=== PATIENT | male | born 1980 | race Hispanic/Latino ===

== ENCOUNTER 2018-02-09 11:30 | Emergency (ER) | payer SELFPAY ==
[2018-02-09 12:00] LABS: Basophils # (Auto) 0.1 K/mm3 (0.0-0.1); Basophils % (Auto) 1.4 % (0.0-1.8); Eosinophils # (Auto) 0.1 K/mm3 (0.0-0.4); Eosinophils % (Auto) 1.4 % (0.0-4.3); Hematocrit 39.3 % (35.5-45.6); Hemoglobin 12.9 gm/dl (11.8-15.2); Lymphocytes # (Auto) 2.1 K/mm3 (1.2-5.4); Lymphocytes % (Auto) 36.1 % (13.4-35.0); Mean Corpuscular HGB Conc 33 % (32-34); Mean Corpuscular Hemoglobin 30 pg (28-32); Mean Corpuscular Volume 91 fl (84-94); Monocytes # (Auto) 0.6 K/mm3 (0.0-0.8); Monocytes % (Auto) 11.2 % (0.0-7.3); Platelet Count 321 K/mm3 (140-440); Red Cell Distribution Width 14.6 % (13.2-15.2)
--- NOTE | 2018-02-09 12:04 | Cat Scan Report ---
CT HEAD WITHOUT CONTRAST: HISTORY: Neurologic deficit. TECHNIQUE: Sequential 2.5mm CT images. COMPARISON: none. FINDINGS: Cerebral Parenchyma: Within normal limits. Cerebellum: Within normal limits. Brainstem: Within normal limits. Ventricles: Normal. Sella: Normal. Extra-axial spaces: Normal. Basal Cisterns: Normal. Intracranial Hemorrhage: None. Midline Shift: None. Calvarium: Normal. Sinuses: Normal. Mastoid Air Cells: Normal. Visualized Orbits: Normal. IMPRESSION: Cranial CT scan within normal limits. These findings were discussed with Dr. Mcarthur in the emergency department at 1142 hours.
[2018-02-09 12:12] LABS: INR 0.96 (0.87-1.13)
[2018-02-09 12:13] LABS: Partial Thromboplastin Time 28.6 Sec. (24.2-36.6)
[2018-02-09 12:14] LABS: BUN/Creatinine Ratio 17; Blood Urea Nitrogen 12 mg/dL (9-20); Calcium 9.1 mg/dL (8.4-10.2); Hemolysis Index 0
[2018-02-09] MEDS ORDERED: VASELINE LIP THERAPY TP PRN (12:19)
[2018-02-09] MEDS ORDERED: ARTIFICIAL TEARS OPHTH OINT OU PRN (12:19)
[2018-02-09] MEDS ORDERED: fentaNYL DRIP Premix 2,000 MCG/100 ML BAG IV SCH (13:00)
[2018-02-09] MEDS ORDERED: ATIVAN 100 MG in NACL 0.9% 50 ML, VIAFLEX EMPTY CONTAINER 0 ML IV SCH (13:00)
[2018-02-09 13:05] LABS: Alanine Aminotransferase 19 units/L (7-56); Albumin 4.1 g/dL (3.9-5)
[2018-02-09 13:10] LABS: Bilirubin,Direct < 0.2 mg/dL (0-0.2)
[2018-02-09 13:20] LABS: Cocaine Screen,Urine PRESUMPTIVE NEGATIVE; Methadone Screen,Urine PRESUMPTIVE NEGATIVE; Opiate Screen,Urine PRESUMPTIVE NEGATIVE
[2018-02-09 13:22] LABS: Bilirubin,Urine NEG (Negative); Blood,Urine LG (Negative); Color,Urine Amber (Yellow); Mucus,Urine FEW /HPF
[2018-02-09 13:23] LABS: RBC,Urine > 182.0 /HPF (0.0-6.0)
[2018-02-09 13:40] LABS: Amphetamine Screen,Urine PRESUMPTIVE POSITIVE; Benzodiazepines Screen,Urine PRESUMPTIVE POSITIVE; Cannabinoid Screen,Urine PRESUMPTIVE POSITIVE
--- NOTE | 2018-02-09 14:43 | Cat Scan Report ---
FINAL REPORT EXAM: CT CERVICAL SPINE WO CON HISTORY: fall patient was found unconscious but woke up and fought intubation. Neck was bent at an odd angle while in C-spine protection. Concern for soft tissue damage. TECHNIQUE: CT of the cervical spine was performed without intravenous contrast. Reconstructions were included in the coronal and sagittal planes. PRIORS: None. FINDINGS: No cervical spine fracture or subluxation. The prevertebral soft tissues are normal. No spinal canal stenosis or neural foraminal narrowing. Thyroid gland appears enlarged and diffusely heterogeneous. Several left thyroid lobe calcifications are seen. Difficult to exclude underlying nodule. IMPRESSION: 1. No acute cervical spine abnormality. 2. Diffusely enlarged, heterogeneous thyroid gland. Recommend further evaluation with thyroid ultrasound.
--- NOTE | 2018-02-09 15:11 | Emergency Department Report ---
ED General Adult HPI - General Chief complaint: Neuro Symptoms/Deficit Stated complaint: AMS Time Seen by Provider: 02/09/18 12:13 Source: EMS Mode of arrival: Stretcher Limitations: Altered Mental Status - History of Present Illness Initial comments: Patient colostomy ED via EMS for altered mental status. Patient was found outside of a hotel unresponsive. Patient is not able to the history. Last known normal was 30 minutes prior to the patient being found unresponsive -: Sudden Quality: other (not applicable) Consistency: other (not applicable) Improves with: other (not applicable) Worsens with: other (not applicable) Associated Symptoms: other (not applicable) Treatments Prior to Arrival: other (patient received 2 mg of Narcan prior to arrival via EMS without any improvement ) - Related Data Previous Rx's Medication Instructions Recorded Last Taken Type Atenolol [Tenormin] 25 mg PO QDAY #30 tab 05/21/15 Unknown Rx Sulfamethoxazole/Trimethoprim 1 each PO BID #20 tablet 05/21/15 Unknown Rx [Bactrim DS TAB] traMADol [Ultram 50 MG tab] 50 mg PO Q6HR PRN #30 tablet 05/21/15 Unknown Rx Allergies Allergy/AdvReac Type Severity Reaction Status Date / Time No Known Allergies Allergy Unverified 05/21/15 11:19 ED Review of Systems ROS: Stated complaint: AMS Other details as noted in HPI Comment: Unobtainable due to pts medical conditions ED Past Medical Hx - Past Medical History Previous Medical History?: No Hx Hypertension: Yes - Surgical History Past Surgical History?: No - Social History Smoking Status: Current Every Day Smoker - Medications Home Medications: Home Medications Medication Instructions Recorded Confirmed Last Taken Type Atenolol [Tenormin] 25 mg PO QDAY #30 tab 05/21/15 Unknown Rx Sulfamethoxazole/Trimethoprim 1 each PO BID #20 tablet 05/21/15 Unknown Rx [Bactrim DS TAB] traMADol [Ultram 50 MG tab] 50 mg PO Q6HR PRN #30 tablet 05/21/15 Unknown Rx ED Physical Exam - General Limitations: Altered Mental Status General appearance: obtunded - Head Head exam: Present: atraumatic, normocephalic - Eye Eye exam: Present: other (pinpoint pupils) - ENT ENT exam: Present: other (dry mucous membranes) - Neck Neck exam: Present: other (supple) - Respiratory Respiratory exam: Present: normal lung sounds bilaterally, respiratory distress , wheezes, rales - Cardiovascular Cardiovascular Exam: Present: other (tachycardic) - GI/Abdominal GI/Abdominal exam: Present: soft, normal bowel sounds. Absent: distended, tenderness - Rectal Rectal exam: Present: normal rectal tone - exam: Present: normal inspection External exam: Present: normal external exam - Neurological Exam Neurological exam: Present: other (not able to assess due to the patient's condition. Initial GCS is a 7, no gag reflex, patient responds to sternal rub) - Psychiatric Psychiatric exam: Present: other (not able to assess due to the patient's condition) - Skin Skin exam: Present: dry ED Course Vital Signs 02/09/18 02/09/18 02/09/18 12:05 12:45 13:00 Temperature 96.8 F L Pulse Rate 57 L 78 52 L Respiratory 17 18 17 Rate Blood Pressure 121/88 Blood Pressure 135/100 129/101 [Left] O2 Sat by Pulse 98 98 97 Oximetry 02/09/18 02/09/18 13:15 13:59 Temperature Pulse Rate 78 78 Respiratory 16 16 Rate Blood Pressure Blood Pressure 118/72 117/82 [Left] O2 Sat by Pulse 98 97 Oximetry - Intubation Time Out Performed: Yes Sedative: Etomidate Paralytic: Succinylcholine Laryngoscope: other (mac) Size: 4 ET Tube Size: 8 Tube Secured Depth (cm): 24 Tube Secured Location: lips Tube Placement Confirmation: visualized tube passing t, equal breath sounds bilat, confirmation by capnometr Patient Tolerated Procedure: well Intubation Complications: none ED Medical Decision Making - Lab Data Result diagrams: 02/09/18 11:54 02/09/18 11:54 - Medical Decision Making On examination the patient had no gag reflex with a GCS of 7 thus is as determined that the patient should be intubated to secure his airway Patient was intubated and IV sedation was ordered Call to the patient's room at approximately 12:30 PM and the patient was self extubating Patient became very belligerent and aggressive and difficult to control Patient endorses using GHB Reevaluation done at 3:20 PM. Patient is able to converse with us without any issue and is very apologetic about what has happened Patient states that he feels better almost gone home Critical care attestation.: If time is entered above; I have spent that time in minutes in the direct care of this critically ill patient, excluding procedure time. ED Disposition Clinical Impression: Polysubstance abuse Disposition: TO HOME OR SELFCARE Is pt being admited?: No Does the pt Need Aspirin: No Condition: Fair Referrals: PRIMARY CAREMD [Primary Care Provider] - 3-5 Days EDWINA BESS MD [Staff Physician] - 3-5 Days Forms: Work/School Release Form(ED) Time of Disposition: 15:28
[2018-02-09 15:44] VITALS: BP 117/80
== END 2018-02-09 15:45 | disposition home or self-care (01) ==
LOC: ED 11:30
DX: F19.10 Other psychoactive substance abuse, uncomplicated (principal); I10 Essential (primary) hypertension; F17.200 Nicotine dependence, unspecified, uncomplicated
CPT/HCPCS: 36415; 70450; 72125; 80048; 80074; 80307; 81001; 82140; 82550; 83735; 84100; 84484; 85025; 85610; 85670; 85730; 94002; 99285; J2060; J3010

== ENCOUNTER 2020-04-09 23:10 | Emergency (ER) | payer BC | END 2020-04-10 02:27 | disposition left against medical advice (07) | LOC: ED 23:10 | DX: R10.9 Unspecified abdominal pain (principal); Z53.21 Procedure and treatment not carried out due to patient leaving prior to being seen by health care provider ==